=== PATIENT | male | born 1970 | race Two or more races ===

== ENCOUNTER 2018-06-26 12:20 | Outpatient (CLI) | payer SELFPAY | END 2018-06-26 23:59 | disposition home health service (06) | LOC: WOU 12:20 | PROVIDERS: ATTEND Specialist | DX: M72.6 Necrotizing fasciitis (principal); B95.62 Methicillin resistant Staphylococcus aureus infection as the cause of diseases classified elsewhere; B96.89 Other specified bacterial agents as the cause of diseases classified elsewhere; G47.30 Sleep apnea, unspecified; I10 Essential (primary) hypertension; Z87.891 Personal history of nicotine dependence; Z83.3 Family history of diabetes mellitus; Z82.49 Family history of ischemic heart disease and other diseases of the circulatory system; Z82.0 Family history of epilepsy and other diseases of the nervous system; Z82.5 Family history of asthma and other chronic lower respiratory diseases; Z79.82 Long term (current) use of aspirin; Z79.899 Other long term (current) drug therapy; E11.9 Type 2 diabetes mellitus without complications; L97.822 Non-pressure chronic ulcer of other part of left lower leg with fat layer exposed; L97.812 Non-pressure chronic ulcer of other part of right lower leg with fat layer exposed | CPT/HCPCS: 11042; 11045; 87070-TC; 87075-TC; 87186-TC; A6209; A6402; A6452; Z7610 ==

== ENCOUNTER 2018-07-03 12:25 | Outpatient (CLI) | payer SELFPAY | END 2018-07-03 23:59 | disposition home health service (06) | LOC: WOU 12:25 | PROVIDERS: ATTEND Specialist | DX: M72.6 Necrotizing fasciitis (principal); S71.131S Puncture wound without foreign body, right thigh, sequela; X78.8XXS Intentional self-harm by other sharp object, sequela; S81.801A Unspecified open wound, right lower leg, initial encounter; B95.62 Methicillin resistant Staphylococcus aureus infection as the cause of diseases classified elsewhere; Z87.891 Personal history of nicotine dependence; I10 Essential (primary) hypertension; Z79.82 Long term (current) use of aspirin; Z86.19 Personal history of other infectious and parasitic diseases; R73.03 Prediabetes | CPT/HCPCS: 11042; 11045; A6209; A6402; A6452 ==

== ENCOUNTER 2018-10-28 08:30 | Outpatient (CLI) | payer SELFPAY | END 2018-10-28 23:59 | disposition home or self-care (01) | LOC: WOU 08:30 | PROVIDERS: ATTEND Podiatrist Foot & Ankle Surgery | DX: I87.311 Chronic venous hypertension (idiopathic) with ulcer of right lower extremity (principal); M72.6 Necrotizing fasciitis; L97.822 Non-pressure chronic ulcer of other part of left lower leg with fat layer exposed; L97.812 Non-pressure chronic ulcer of other part of right lower leg with fat layer exposed; R73.03 Prediabetes; I10 Essential (primary) hypertension; B19.10 Unspecified viral hepatitis B without hepatic coma; Z79.82 Long term (current) use of aspirin; Z87.891 Personal history of nicotine dependence | CPT/HCPCS: 11042; A6402 ×2; A6452 ==

== ENCOUNTER 2018-10-30 08:55 | Outpatient (CLI) | payer SELFPAY | END 2018-10-30 23:59 | disposition home health service (06) | LOC: WOU 08:55 | PROVIDERS: ATTEND Specialist | DX: M72.6 Necrotizing fasciitis (principal); Z87.891 Personal history of nicotine dependence; Z86.19 Personal history of other infectious and parasitic diseases; I87.311 Chronic venous hypertension (idiopathic) with ulcer of right lower extremity; L97.812 Non-pressure chronic ulcer of other part of right lower leg with fat layer exposed | CPT/HCPCS: 87070; 87075; 87077; 99215; A6210; A6402; A6452; G0463 ==

== ENCOUNTER 2018-11-06 11:17 | Outpatient (CLI) | payer SELFPAY | END 2018-11-06 23:59 | disposition home or self-care (01) | LOC: WOU 11:17 | PROVIDERS: ATTEND Specialist | DX: I87.311 Chronic venous hypertension (idiopathic) with ulcer of right lower extremity (principal); L97.812 Non-pressure chronic ulcer of other part of right lower leg with fat layer exposed; M72.6 Necrotizing fasciitis; T86.828 Other complications of skin graft (allograft) (autograft); Z86.14 Personal history of Methicillin resistant Staphylococcus aureus infection; Z87.891 Personal history of nicotine dependence; Z79.82 Long term (current) use of aspirin; Z86.19 Personal history of other infectious and parasitic diseases; Z83.3 Family history of diabetes mellitus; Z82.3 Family history of stroke; Z82.49 Family history of ischemic heart disease and other diseases of the circulatory system | CPT/HCPCS: 11042; A6402; A6452 ==

== ENCOUNTER 2018-11-13 08:56 | Outpatient (CLI) | payer SELFPAY | END 2018-11-13 23:59 | disposition home or self-care (01) | LOC: WOU 08:56 | PROVIDERS: ATTEND Specialist | DX: I87.311 Chronic venous hypertension (idiopathic) with ulcer of right lower extremity (principal); L97.812 Non-pressure chronic ulcer of other part of right lower leg with fat layer exposed; M72.6 Necrotizing fasciitis; T81.31XD Disruption of external operation (surgical) wound, not elsewhere classified, subsequent encounter; Z87.891 Personal history of nicotine dependence; Z79.82 Long term (current) use of aspirin; Z86.19 Personal history of other infectious and parasitic diseases; G47.30 Sleep apnea, unspecified; Z86.14 Personal history of Methicillin resistant Staphylococcus aureus infection | CPT/HCPCS: 11042; A6402 ×2 ==

== ENCOUNTER 2018-11-20 08:25 | Outpatient (CLI) | END 2018-11-20 23:59 | disposition home or self-care (01) | LOC: WOU 08:25 | PROVIDERS: ATTEND Specialist | DX: I87.311 Chronic venous hypertension (idiopathic) with ulcer of right lower extremity (principal); L97.812 Non-pressure chronic ulcer of other part of right lower leg with fat layer exposed; M72.6 Necrotizing fasciitis; T86.828 Other complications of skin graft (allograft) (autograft); Z79.82 Long term (current) use of aspirin; I10 Essential (primary) hypertension; Z87.891 Personal history of nicotine dependence; A49.02 Methicillin resistant Staphylococcus aureus infection, unspecified site | CPT/HCPCS: 11042; A6402 ==

== ENCOUNTER 2018-11-27 08:30 | Outpatient (CLI) | payer SELFPAY | END 2018-11-27 23:59 | disposition home or self-care (01) | LOC: WOU 08:30 | PROVIDERS: ATTEND Specialist | DX: M72.6 Necrotizing fasciitis (principal); I87.311 Chronic venous hypertension (idiopathic) with ulcer of right lower extremity; S71.131S Puncture wound without foreign body, right thigh, sequela; W26.8XXS Contact with other sharp object(s), not elsewhere classified, sequela; L97.812 Non-pressure chronic ulcer of other part of right lower leg with fat layer exposed; T86.828 Other complications of skin graft (allograft) (autograft); T86.821 Skin graft (allograft) (autograft) failure | CPT/HCPCS: 11042; A6402 ==

== ENCOUNTER 2018-12-04 11:08 | Outpatient (CLI) | payer SELFPAY | END 2018-12-04 23:59 | disposition home or self-care (01) | LOC: WOU 11:08 | PROVIDERS: ATTEND Specialist | DX: I87.311 Chronic venous hypertension (idiopathic) with ulcer of right lower extremity (principal); L97.812 Non-pressure chronic ulcer of other part of right lower leg with fat layer exposed; M72.6 Necrotizing fasciitis; T86.828 Other complications of skin graft (allograft) (autograft); T86.821 Skin graft (allograft) (autograft) failure; Z86.19 Personal history of other infectious and parasitic diseases; I10 Essential (primary) hypertension; I87.2 Venous insufficiency (chronic) (peripheral); Z83.3 Family history of diabetes mellitus; Z82.3 Family history of stroke; Z82.49 Family history of ischemic heart disease and other diseases of the circulatory system | CPT/HCPCS: 11042; A6402 ==

== ENCOUNTER 2018-12-11 11:44 | Outpatient (CLI) | payer SELFPAY | END 2018-12-11 23:59 | disposition home or self-care (01) | LOC: WOU 11:44 | PROVIDERS: ATTEND Specialist | DX: M72.6 Necrotizing fasciitis (principal); I87.311 Chronic venous hypertension (idiopathic) with ulcer of right lower extremity; L97.812 Non-pressure chronic ulcer of other part of right lower leg with fat layer exposed; S71.131S Puncture wound without foreign body, right thigh, sequela; W26.8XXS Contact with other sharp object(s), not elsewhere classified, sequela; T86.828 Other complications of skin graft (allograft) (autograft); T86.821 Skin graft (allograft) (autograft) failure; Z79.82 Long term (current) use of aspirin; I10 Essential (primary) hypertension; Z86.19 Personal history of other infectious and parasitic diseases; Z87.891 Personal history of nicotine dependence | CPT/HCPCS: 11042; 87070; 87075; A6402 ==